=== PATIENT | female | born 1955 | race Caucasian/White ===

== ENCOUNTER 2017-05-30 19:51 | Emergency (ER) | payer SELFPAY ==
[2017-05-30 20:40] VITALS: BP 119/69
--- NOTE | 2017-05-30 20:44 | UC ---
Knee Pain HPI - HPI Summary HPI Summary: 62 y/o female presents to the urgent care c/o RT knee pain for the past week that has worsen. Pain is 7/10 w/ walking, pressing her car accelerator. Pain dull and localized in the medial aspect of her knee and radiating down the back of her calf. Pt reports she had Hx of Achilles tendon rupture about 3 years ago and since then she hasn't have any problems. Pt denies smoking, Hx of DVT, cloths, SOB, chest pain, abdominal pain, N/V/D. - History of Current Complaint Chief Complaint: UCLowerExtremity Stated Complaint: RIGHT KNEE COMPLAINT Time Seen by Provider: 05/30/17 20:43 Hx Obtained From: Patient ?: No - Pt is menopausal Onset/Duration: Gradual Onset, Lasting Weeks - 1 week, Still Present, Worse Since - yesterday Severity Initially: Mild Severity Currently: Moderate Pain Intensity: 7 Pain Scale Used: 0-10 Numeric Character: Dull, Aching Aggravating Factor(s): Movement, Stairs Alleviating Factor(s): Rest, Cold, OTC Meds Associated Signs And Symptoms: Positive: Negative. Negative: Redness, Bruising , Fever, Numbness, Tingling - Risk Factors Septic Arthritis Risk Factor: Negative Gout Risk Factor: Negative - Allergies/Home Medications Allergies/Adverse Reactions: Allergies Allergy/AdvReac Type Severity Reaction Status Date / Time No Known Allergies Allergy Verified 08/07/14 20:25 Home Medications: Home Medications Sertraline HCl [Zoloft] 100 mg PO 05/30/17 [History] PMH/Surg Hx/FS Hx/Imm Hx Previously Healthy: Yes Psychological History: Depression - Surgical History Surgical History: Yes Surgery Procedure, Year, and Place: Shoulder surgery, partial hysterectomy, appy , back surgery - Family History Known Family History: Positive: Hypertension, Diabetes - Social History Occupation: Employed Full-time Lives: With Family Alcohol Use: None Substance Use Type: None Smoking Status (MU): Former Smoker Review of Systems Constitutional: Negative Skin: Negative Eyes: Negative ENT: Negative Respiratory: Negative Cardiovascular: Negative Gastrointestinal: Negative Genitourinary: Negative Motor: Negative Neurovascular: Negative Musculoskeletal: Decreased ROM - RT knee, Other: - RT knee pain and RT calf pain Neurological: Negative Psychological: Negative Is Patient Immunocompromised?: No All Other Systems Reviewed And Are Negative: Yes Physical Exam Triage Information Reviewed: Yes Vital Signs: Initial Vital Signs Temp 98.2 F 05/30/17 20:30 Pulse 68 05/30/17 20:30 Resp 18 05/30/17 20:30 BP 119/69 05/30/17 20:30 Pulse Ox 98 05/30/17 20:30 - Additional Comments Vital Signs Reviewed: Yes General: well developed, well nourished female sitting in the examining table w/ o any apparent distress Eyes: Positive: Conjunctiva Clear - PERRLA, EOMI, fundi grossly normal ENT: Positive: Normal ENT inspection, Hearing grossly normal, Pharynx normal, TMs normal Neck: Positive: Supple, Nontender, No Lymphadenopathy Respiratory: Positive: Chest nontender, Lungs clear, Normal breath sounds, No respiratory distress Cardiovascular: Positive: RRR, No Murmur, Pulses Normal, Brisk Capillary Refill Abdomen Description: Positive: Nontender, No Organomegaly, Soft. Negative: CVA Tenderness (R), CVA Tenderness (L) Bowel Sounds: Positive: Present Musculoskeletal: Positive: Strength Intact, No Edema, RT Knee: Pt is able to bear weight and ambulate with limping. No surface trauma, mild soft tissue swelling aroun Rt patella when compared w/ Lf patella no obvious effusion observed. No overlying erythema or warmth. The R knee is without obvious asymmetry or deformity when compared with the L knee. Decreased ROM of RT knee due to pain. no effusion or ballottement. Point tenderness over the medial joint line, and tenderness over the medial tibial plateaus. No tenderness over the proximal fibular head, No tenderness, fullness or mass of the popliteal fossa. No quadriceps tenderness. No laxity of the ACL. PCL, MCL, or LCL. no collateral ligament laxity to valgus or varus stress. Negative Glen /Drawer sign. Positive Maico. Distal motor and neurovascular status intact. Mild tenderness over the RT calf, Marino test : negative Neurological Exam: Normal Psychological Exam: Normal Skin Exam: Normal Knee Pain Course/Dx - Course Course Of Treatment: 62 y/o female presents to the urgent care c/o RT knee pain for the past week that has worsen. Pain is 7/10 w/ walking, pressing her car accelerator. Pain dull and localized in the medial aspect of her knee and radiating down the back of her calf. Pt reports she had Hx of Achilles tendon rupture about 3 years ago and since then she hasn't have any problems. Pt denies smoking, Hx of DVT, cloths, SOB, chest pain, abdominal pain, N/V/D.Hx obtained. DR Rodarte consulted on Pt's symptoms and he evaluated Pt and recommended X-ray of knee. RT knee X-ray ordered. Impression:No acute bony finding, mild patelofemoral osteoarthritis observed as per radiologist. Pt Rx Naproxen PO to alleviate symptoms. Pt's knee immobilized w/ irene bandage and .Advised RICE. Avoid strenuous exercise or standing for long period of time. f/ u with Orthopedic Dr Sanchez in 2-3 days for further evaluation and treatment. PT understood and agreed with D/C instructions. - Differential Dx/Diagnosis Differential Diagnosis/HQI/PQRI: Bursitis, Contusion, DVT, Fracture (Closed), Sprain, Strain, Tendonitis, Other - jackson cyst, achilles tendonitis, Meniscus tear Provider Diagnoses: 1- RT acute knee pain - Physician Notifications Discussed Patient Care With: Jack Rodarte - DR Rodarte agreed w/ Pt's plan of care. Discharge - Discharge Plan Condition: Stable Disposition: HOME Prescriptions: Naproxen [Naproxen 500 mg] 500 mg PO Q8H PRN #30 tab PRN Reason: Pain Patient Education Materials: Knee Pain (ED) Referrals: Irvin Sanchez MD [Medical Doctor] - 2 Days Samantha Keen MD [Primary Care Provider] - 3 Days Additional Instructions: 1-Please take Naproxen PO q6-8hrs prn as instructed after meals to alleviate pain and swelling. 2-Keep your knee immobilized w/ irene bandage, apply ice and keep it elevated, rest , avoid strenuous exercise, or heavy lifting. 3- f/u with Othopedic Dr Sanchez in 2-3 days for further evaluation and treatment.
--- NOTE | 2017-05-30 21:25 | RAD ---
INDICATION: Right knee pain COMPARISON: None TECHNIQUE: AP, lateral, tunnel, and sunrise views were obtained. FINDINGS: There are no acute bony findings. There is minor patellofemoral osteoarthritis. There is no significant joint effusion. IMPRESSION: NO ACUTE BONY FINDINGS. SUGGEST FOLLOW-UP CLINICALLY INDICATED.
[2017-05-30] MEDS ORDERED: Naproxen TAB* 250 MG PO ONE (21:38)
== END 2017-05-30 21:48 | disposition home or self-care (01) ==
LOC: UCCORT 19:51
DX: M25.561 Pain in right knee (principal); M79.661 Pain in right lower leg; F32.9 Major depressive disorder, single episode, unspecified; Z87.891 Personal history of nicotine dependence
CPT/HCPCS: 99212; A9270-GY; G0463